=== PATIENT | female | born 1970 | race Caucasian/White ===

== ENCOUNTER 2017-06-15 21:17 | Observation (INO) ==
[2017-06-15] MEDS ORDERED: IOPAMIDOL 100 ML BOTTLE IV ONE (21:18)
[2017-06-15] MEDS ORDERED: ONDANSETRON 4 MG/2 ML VIAL IV ONE (21:42)
[2017-06-15] MEDS ORDERED: LACTATED RINGERS 1,000 ML IV ONE ×2 (21:42→23:44)
[2017-06-15] MEDS ORDERED: PROCHLORPERAZINE 10 MG/2 ML VIAL IV ONE (22:07)
[2017-06-15 23:24] LABS: Basophils # (Auto) 0.1 K/mcL (0.0-0.3); Basophils % (Auto) 0.6 % (0.0-2.0); Eosinophils # (Auto) 0 K/mcL (0.0-0.7); Eosinophils % (Auto) 0.3 % (0.0-7.0); Granulocytes % (Auto) 84.5 % (38.0-78.0); Lymphocytes # (Auto) 1.3 K/mcL (1.5-4.8); Lymphocytes % (Auto) 9.8 % (15.5-49.0); Mean Corpuscular HGB Conc 33.7 g/dL (31.0-36.0); Monocytes # (Auto) 0.6 K/mcL (0.1-0.9); Monocytes % (Auto) 4.8 % (1.0-12.0); Platelet Count 297 K/mcL (140-440); RBC 5.49 M/mcL (4.00-5.20); Red Cell Distribution Width 13.2 % (11.5-14.5)
[2017-06-15 23:37] LABS: Appearance,Urine CLEAR; Bacteria,Urine 0 /hpf (0); Bilirubin,Urine NEG (NEG); Color,Urine YELLOW; Glucose,Urine (UA) NEGATIVE (NEG); Leukocyte Esterase,Urine NEG /uL (NEG); Mucus,Urine FEW /hpf (0); Nitrate,Urine NEG (NEG); Protein,Urine 100 mg/dL (NEG); Specific Gravity,Urine 1.019 (1.000-1.035); Urine Blood 0.2 mg/dL (<0.03); Urine Hyaline Cast 70 /lpf (0-2); Urine RBC 2 /hpf (0-1); Urine Squamous Epithelial Cell < 1 /hpf (0-4); Urine WBC < 1 /hpf (0-4); Urobilinogen,Urine NEG (NEG)
[2017-06-15 23:41] LABS: ALT/SGPT 22 U/l (0-40); Albumin 5.2 gm/dL (3.2-5.2); Albumin/Globulin Ratio 1.4 (1.0-2.3); Alkaline Phosphatase 176 U/L (39-117); Blood Urea Nitrogen 14 mg/dl (6-20); C-Reactive Protein < 0.3 mg/dl (0.0-0.8)
[2017-06-15] MEDS ORDERED: LORazepam 2 MG/ML VIAL IV ONE (23:45)
[2017-06-16] MEDS ORDERED: ONDANSETRON 4 MG/2 ML VIAL IV ONE (00:42)
[2017-06-16] MEDS ORDERED: SCOPOLAMINE 1 PATCH PATCH TOPICAL ONE (01:47)
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
--- NOTE | 2017-06-16 02:23 | Internal Med History&Physical ---
Medical - H&P: HPI Patient information: Note initiated : 06/16/17 at 2:19 am Service Date, if different from initiated Date: [] Patient: Zarina Dubois a 47 y/o F admitted on for sinus congestion, nausea. Chief Complaint: n/v/abdominal pain History of present illness: Ms. Talon Noel is a 47 year old F with a history of asthma/COPD with continued tobacco abuse, diagnosis of cyclical vomiting syndrome and alcohol abuse with history of alcoholic ketoacidosis who was in her usual state of health until earlier this week when she developed rhinorrhea, sinus congestion. She began having nausea and nonbloody, nonbilious vomiting 2 days ago accompanied by suprapubic, upper abdominal and lower back pain following the vomiting. She denies fevers or chills, dysuria. She does endorse diarrhea for the last 3 days that seems to have slowed down. She denies hematochezia or melena. She reports that she has a history of alcohol abuse dating back to 2012. At her heaviest she drank a fifth of alcohol daily. She states she was sober for 76 days but relapsed last week and has been drinking about a third of the fifth daily with her last drink yesterday. In the ER she was treated with 2 L of lactated Ringer's, Zofran, Compazine and Ativan and her vomiting has slowed but she still has intractable nausea. She was found to have an anion gap of 41 and a lactate of 5.2. She had mild liver enzyme elevation and leukocytosis. She had ketones in her urine. She states she is postmenopausal and has no chance of being . She has a history of cyclical vomiting syndrome which was diagnosed in 2006. She actually had her gallbladder out in the hopes that would improve her symptoms, but did not. She states she normally does better with ranitidine. This last month that she has not really had any heartburn symptoms. Review of systems: Please see the HPI. Otherwise a comprehensive review of systems is negative or noncontributory to chief complaint. Medical - H&P: PMH Medical history: Asthma/possible COPD with continued tobacco abuse Alcohol is a history of alcoholic ketoacidosis. She denies any history of known liver disease Cyclical vomiting syndrome Surgical history: Cholecystectomy Pertinent family history: Positive for diabetes, stroke, cancer. One of her brothers had hepatitis C cirrhosis and of hepatocellular carcinoma. Another brother from complications from HIV. Social history: She lives with her sister, . She is currently looking for work and volunteers at the local [employer]. She smokes one pack per day and occasionally smokes marijuana. She has a history of alcohol abuse with relapse last week. She is a full code and designates her sister as her surrogate medical decision maker. Medical - H&P: Meds Home Medications Medication Instructions Recorded Confirmed Type Albuterol Sulfate [Proair Hfa] 8.5 gm IH PRN PRN 01/28/17 03/03/17 History Ranitidine HCl [Heartburn Relief] 150 mg PO DAILY 01/28/17 03/03/17 History Allergies Allergy/AdvReac Type Severity Reaction Status Date / Time sulfamethoxazole Allergy Vomiting Verified 06/15/17 21:21 [From Bactrim] blood trimethoprim [From Bactrim] Allergy Vomiting Verified 06/15/17 21:21 blood codeine AdvReac Abdominal Verified 06/15/17 21:21 Pain Medroxyprogesterone AdvReac Anxiety Verified 06/15/17 21:21 [From Depo-Provera] Medical - H&P: Exam - Constitutional Vitals: Temp Pulse Resp BP Pulse Ox 97.0 F 123 H 20 119/71 94 06/15/17 21:18 06/16/17 00:46 06/15/17 21:18 06/16/17 00:46 06/16/17 00:46 Exam: General: This is a pleasant, thin woman who appears fatigued and much older than her stated age. HEENT: Normocephalic atraumatic. PERRLA. EOMI. Sclerae are anicteric; conjunctiva are noninjected. Mucous membranes are dry. Neck: Supple without JVD, lymphadenopathy or thyromegaly Respiratory: No acute respiratory distress. Lungs are clear to auscultation bilaterally. CV: Regular rate and rhythm. No murmurs, rubs or gallops. Abdomen: Soft, nondistended. She has mild tenderness throughout her abdomen. Bowel tones are present. No peritoneal signs. No stigmata of chronic liver disease Extremities are without clubbing, cyanosis or edema. Neuro: Alert and oriented 3. Cranial nerves II through XII are grossly intact. She has no focal motor or sensory deficits. No asterixis. Psych: Normal mood and affect. Skin: Warm and dry Medical - H&P: Reslt - Labs CBC & Chem 7: 06/15/17 22:20 06/16/17 01:42 Labs: Short CBC 06/15/17 Range/Units 22:20 WBC 13.3 H (4.5-11.0) K/mcL Hgb 17.0 H (12.0-15.0) g/dL Hct 50.5 H (36.0-48.0) % Plt Count 297 (140-440) K/mcL BMP 06/15/17 22:20 Sodium 137 Potassium 4.0 Chloride 85 L Carbon Dioxide 11 L BUN 14 Creatinine 1.0 Glucose 93 Calcium 9.6 Liver Function 06/15/17 Range/Units 22:20 Total Bilirubin 0.5 (0.0-1.0) mg/dL AST 38 H (0-37) U/l ALT 22 (0-40) U/l Alkaline Phosphatase 176 H (39-117) U/L Albumin 5.2 (3.2-5.2) gm/dL Urine 06/15/17 Range/Units 22:20 Urine Color Yellow Urine Appearance Clear Urine pH 5.0 (5.0-9.0) Ur Specific [place] 1.019 (1.000-1.035) Urine Protein 100 A (NEG) mg/dL Urine Glucose (UA) Negative (NEG) mg/dL Medical - H&P: A/P - Narrative A/P Narrative: #Anion gap metabolic acidosis concurrent metabolic alkalosis -AG 41-->31 with 2L IVF -lactate 5.2 -urine ketones 80 #Intractable nausea and vomiting with h/o CVS This is likely multifactorial with the real underlying issue exacerbating her cyclical vomiting. She does not have a surgical abdomen on exam, but will get CT abd/pelvis to evaluate for intraabdominal catastrophe causing lactic acidosis. Since she is so clinically stable it may be that she was hypovolemic and couldn't clear her lactic acid 2/2 underlying EtOH liver disease. Also consider alcoholic ketoacidosis vs starvation ketosis. Plan: 1. Check ABG for pH. Tele 2. Cont IVF 3. F/U lytes, including Mg and Phos at 9AM. Trend lactate. 4. PRN antiemetics and IV famotidine as H2 blockers have helped in the past 5. CT abd/pelvis as above 6. Monitor for EtOH WD #SIRS--as above #Abnormal LFTs--likely r/t EtOH. Check INR, CK, hepatitis panel. f/u CT. #Upper respiratory tract infection--supportive care with PRN nebs #Nicotine dependence: nicotine patch QD. I counseled patient on smoking cessation x 3 minutes personalizing it to her lung disease and family history of stroke. #DVT prophylaxis: enoxaparin #CODE STATUS: Full. Her sister, , is her surrogate MDM.
[2017-06-16 02:25] LABS: Blood Urea Nitrogen 11 mg/dl (6-20); Creatine Kinase 214 IU/L (24-170)
[2017-06-16] MEDS ORDERED: ONDANSETRON 4 MG/2 ML VIAL IV PRN (02:55)
[2017-06-16] MEDS ORDERED: PROCHLORPERAZINE 10 MG/2 ML VIAL IV PRN (02:55)
[2017-06-16] MEDS ORDERED: PROCHLORPERAZINE MALEATE 10 MG TABLET PO PRN (02:55)
[2017-06-16] MEDS ORDERED: HYDROmorphone 2 MG/ML SYRINGE IV PRN (02:55)
[2017-06-16] MEDS ORDERED: ALBUTEROL SULFATE 2.5 MG/3 ML NEBULIZER NEB PRN (02:55)
[2017-06-16] MEDS ORDERED: PROMETHAZINE 25 MG/ML VIAL IV PRN (02:55)
[2017-06-16] MEDS ORDERED: NICOTINE 14 MG PATCH ONE (03:12)
[2017-06-16] MEDS ORDERED: PROMETHAZINE 25 MG/ML VIAL ONE (03:33)
[2017-06-16] MEDS: LACTATED RINGERS 1,000 ML IV SCH ×3 (03:34→18:46)
--- NOTE | 2017-06-16 06:08 | XRay Report ---
INDICATION: Cough. Elevated lactic acid TECHNIQUE: PA and lateral upright chest x-ray COMPARISON: Previous chest x-ray dated 03/03/2017 FINDINGS:Upper lungs are lucent suggesting COPD. No focal pulmonary parenchymal infiltrate or mass. Heart size and vascularity are normal. No pulmonary edema. No pulmonary congestion. [place] and mediastinum are negative. No pleural fluid. No significant interval change IMPRESSION: 1. Probable COPD 2. No acute or focal abnormality. Interpreted and Authenticated by: Adrian Craig 06/16/17
--- NOTE | 2017-06-16 06:17 | Cat Scan Report ---
CLINICAL INFORMATION: Altered mental status. Elevated lactic acid. Vomiting. COMPARISON: None. TECHNIQUE: Axial images were obtained through the abdomen and pelvis. Sagittally and coronally reformatted images. 80 mL contrast material injected intravenously. Oral contrast material was not administered FINDINGS: Lung bases are negative for focal infiltrate. No parenchymal mass. There is centrilobular emphysema both lung bases. Appearance suggests smoking history. Clinical correlation necessary. No pleural fluid. No pericardial fluid. Liver is enlarged and diffusely low in attenuation. Appearance is consistent with hepatic steatosis. There is a single low-density lesion in the left lobe. This measures 14 mm. This is probably benign. Liver contour is smooth. No ascites. There are surgical clips in the gallbladder fossa. No dilated bile ducts. Spleen is negative. No splenomegaly. Normal enhancement of splenic and portal veins. There is an 11 mm low-density lesion in the pancreas, the junction of the body and tail. This is nonspecific. There is no distal pancreatic duct dilatation. This may be a benign cystic lesion but neoplasm is not excluded. Baseline MRI scan recommended for further evaluation. Pancreas is otherwise negative. No peripancreatic abnormality. Negative adrenal glands. Negative kidneys. No solid or cystic mass. No hydronephrosis. Colon appears diffusely abnormal with mild generalized colonic wall thickening. No pericolonic inflammatory change. No diverticulitis. No discrete mass. The entire colon is abnormal suggesting pancolitis. Normal superior and inferior mesenteric artery. Findings are not typical of ischemic colitis. Small bowel is negative. No dilatation. No bowel obstruction. No retroperitoneal or significant mesenteric adenopathy. No free intraperitoneal fluid. No abscess. No pneumoperitoneum. No biliary or portal venous gas. No pneumatosis. Uterus is present. No adnexal mass. Lumbar spine, sacrum, pelvis are negative. Examination was initially interpreted by [facility] IMPRESSION: 1. Mild generalized colonic wall thickening suggests pancolitis. 2. 11 mm low-density lesion in the pancreas. Recommend baseline MRI scan 3. Hepatic steatosis. 4. Centrilobular emphysema Interpreted and Authenticated by: Adrian Craig 06/16/17
[2017-06-16] MEDS: NICOTINE 14 MG PATCH TOPICAL SCH (09:32)
[2017-06-16] MEDS: FAMOTIDINE/PF 20 MG/2 ML VIAL IV SCH ×2 (09:33→21:16)
[2017-06-16] MEDS: ENOXAPARIN 40 MG/0.4 ML SYRINGE SQ SCH (09:33)
[2017-06-16 09:52] LABS: Blood Urea Nitrogen 9 mg/dl (6-20); Magnesium 1.9 mg/dL (1.6-2.5)
[2017-06-16] MEDS ORDERED: MAGNESIUM SULFATE 32.48 MEQ in DEXTROSE 5% IN WATER 100 ML IV ONE (10:02)
--- NOTE | 2017-06-16 10:29 | Internal Med Progress Note ---
Medical - Auxillary Note - Subjective Patient Information: Note initiated : 06/16/17 at 10:20 am Service Date, if different from initiated Date: [] Patient: Zarina Dubois 47 y/o F admitted on 06/16/17 for sinus congestion, nausea. Chief Complaint: [] Vital Signs Temp Pulse Resp BP Pulse Ox 99.4 F H 113 H 20 112/66 94 06/16/17 08:49 06/16/17 08:49 06/16/17 02:56 06/16/17 08:49 06/16/17 08:49 Period Temp Pulse Resp BP Sys/Quan Pulse Ox Last 24 Hr 97.0 F-99.4 F 95-140 16-20 112-134/66-89 94-97 Intake and Output 06/15/17 06/16/17 06/16/17 21:59 05:59 13:59 Intake Total 1999 / 1999 897 / 897 Output Total 650 / 650 Balance 1350 / 1350 897 / 897 Weight 120 lb 109 lb 8 oz Medications Albuterol Sulfate (Ventolin) 2.5 mg NEB Q4HP PRN PRN Reason: Wheezing Enoxaparin Sodium (Lovenox) 40 mg SQ DAILY [facility] Last Admin: 06/16/17 09:33 Dose: 40 mg Famotidine (Pepcid) 20 mg IV Q12 [facility] Last Admin: 06/16/17 09:33 Dose: 20 mg Hydromorphone HCl (Dilaudid) 0.5 mg IV Q2HP PRN PRN Reason: PAIN LEVEL > 6 Lactated Ringer's (Lactated Ringers) 1,000 mls @ 150 mls/hr IV .Q6H40M [facility] Last Admin: 06/16/17 09:33 Dose: 150 mls/hr Magnesium Sulfate 32.48 meq/ (Dextrose) 108 mls @ 54 mls/hr IV ONCE ONE Stop: 06/16/17 12:01 Nicotine (Nicoderm) 14 mg TOPICAL DAILY@1000 [facility] Last Admin: 06/16/17 09:32 Dose: 14 mg Ondansetron HCl (Zofran) 4 mg IV Q4HP PRN PRN Reason: Nausea And Vomiting Potassium/Phosphorus/Sodium (Neutra Phos) 1 packet PO BID [facility] Prochlorperazine Edisylate (Compazine) 10 mg IV Q4HP PRN PRN Reason: Nausea And Vomiting Prochlorperazine Maleate (Compazine) 10 mg PO Q8HP PRN PRN Reason: Nausea And Vomiting Promethazine HCl (Phenergan) 12.5 mg IV Q4HP PRN PRN Reason: Nausea And Vomiting Result Di[place]ams 06/15/17 22:20 06/16/17 08:54 Abnormal Labs 06/16/17 06/16/17 06/16/17 22:25 08:54 02:30 WBC RBC Hgb Hct Gran % Lymph % (Auto) Gran # Lymph # (Auto) PT 15.0 H INR 1.2 H VBG Lactic Acid Chloride 95 L Carbon Dioxide 12 L Anion Gap 26.0 H Calcium Phosphorus 2.4 L AST Alkaline Phosphatase Total Creatine Kinase Total Protein Globulin Urine Protein Urine Ketones Urine Occult Blood Urine RBC Hyaline Casts Ethyl Alcohol 0.134 H 06/16/17 06/16/17 06/15/17 01:42 00:20 22:20 WBC RBC Hgb Hct Gran % Lymph % (Auto) Gran # Lymph # (Auto) PT INR VBG Lactic Acid 5.2 H* Chloride 95 L 85 L Carbon Dioxide 9 L* 11 L Anion Gap 31.0 H 41.0 H Calcium 8.1 L Phosphorus AST 38 H Alkaline Phosphatase 176 H Total Creatine Kinase 214 H Total Protein 9.0 H Globulin 3.8 H Urine Protein Urine Ketones Urine Occult Blood Urine RBC Hyaline Casts Ethyl Alcohol 06/15/17 06/15/17 22:20 22:20 WBC 13.3 H RBC 5.49 H Hgb 17.0 H Hct 50.5 H Gran % 84.5 H Lymph % (Auto) 9.8 L Gran # 11.2 H Lymph # (Auto) 1.3 L PT INR VBG Lactic Acid Chloride Carbon Dioxide Anion Gap Calcium Phosphorus AST Alkaline Phosphatase Total Creatine Kinase Total Protein Globulin Urine Protein 100 A Urine Ketones 80 A Urine Occult Blood 0.2 A Urine RBC 2 H Hyaline Casts 70 H Ethyl Alcohol Pt is much improved this AM. Still having some lower abdominal pain but tolerating clears so far. Acidosis and anion gap continue to improve with IVF. Lactic acidosis has resolved. Her K is creeping up but I want to use LR as long as possible to avoid worsening her acidosis. Given Mg and Phos replacement today with repeat BMP ordered at 1500 and AM Mg and Phos. #AGMA 2/2 lactic acidosis, EtOH and ketosis (starvation vs EtOH) -lactate now 1. EtOH 0.134 on admission. Salicylates and CK reassuring -CT without perforation or ischemia # Hepatic steatosis--Trend LFTs in AM. F/U hepatitis panel. INR 1.2 # Possible pancreatic lesion--needs MRI. She does not have a PCP. This could be done as an outpatient if follow up arranged. She is checking on her insurance status today. #Pancolitis seen on CT--eventually will need diagnostic scope. She is hesitant to pursue colonsocopy but will consider. At this point, would hold off for at least a few days given hypovolemia and acidosis before subjecting her to colonoscopy prep. Again, I am concerned she may be lost to follow up if not arranged prior to DC. #EtOH abuse--monitor for sx of WD.
[2017-06-16 15:56] LABS: Blood Urea Nitrogen 10 mg/dl (6-20)
[2017-06-16 20:57] LABS: Blood Urea Nitrogen 11 mg/dl (6-20)
[2017-06-16] MEDS: NEUTRA PHOS 1 PACKET PO SCH (21:16)
[2017-06-17] MEDS: LACTATED RINGERS 1,000 ML IV SCH ×2 (01:16→08:45)
[2017-06-17 04:58] LABS: Mean Cell Volume 90.5 fL (80.0-100.0); Mean Corpuscular HGB Conc 34.7 g/dL (31.0-36.0); Mean Corpuscular Hemoglobin 31.4 pg (26.0-34.0); Platelet Count 181 K/mcL (140-440); RBC 4.14 M/mcL (4.00-5.20); Red Cell Distribution Width 13.1 % (11.5-14.5)
[2017-06-17 05:11] LABS: ALT/SGPT 14 U/l (0-40); Albumin 3.5 gm/dL (3.2-5.2); Albumin/Globulin Ratio 1.4 (1.0-2.3); Alkaline Phosphatase 105 U/L (39-117); Blood Urea Nitrogen 8 mg/dl (6-20)
[2017-06-17 06:09] LABS: Band Neutrophils % 3 % (0-10); Basophils % (Manual) 1 % (0-2); Eosinophils % (Manual) 1 % (0-7); Lymphocytes % 20 % (15-49); Monocytes % (Manual) 4 % (1-12); Platelet Estimate NORMAL (NORMAL); RBC Morphology NORMAL (NORMAL); Segmented Neutrophils % 71 % (38-78)
[2017-06-17] MEDS: ENOXAPARIN 40 MG/0.4 ML SYRINGE SQ SCH (08:52)
[2017-06-17] MEDS: FAMOTIDINE/PF 20 MG/2 ML VIAL IV SCH (08:52)
[2017-06-17] MEDS: NEUTRA PHOS 1 PACKET PO SCH ×2 (08:52→21:08)
[2017-06-17] MEDS ORDERED: POTASSIUM PHOSPHATE 40 MEQ in DEXTROSE 5% IN WATER 500 ML IV ONE (09:00)
[2017-06-17] MEDS: NICOTINE 14 MG PATCH TOPICAL SCH (10:55)
[2017-06-17 16:45] LABS: Blood Urea Nitrogen 7 mg/dl (6-20)
[2017-06-17] MEDS ORDERED: POTASSIUM PHOSPHATE 20 MEQ in DEXTROSE 5% IN WATER 250 ML IV ONE (17:03)
[2017-06-17] MEDS ORDERED: POTASSIUM PHOSPHATE 22 MEQ/5 ML VIAL IV ONE (19:16)
[2017-06-17] MEDS: FAMOTIDINE 20 MG TABLET PO SCH (21:08)
--- NOTE | 2017-06-17 21:36 | Internal Med Progress Note ---
Medical - PN: Subj Patient information: Note initiated : 06/17/17 at 9:32 pm Service Date, if different from initiated Date: [] Patient: Zarina Dubois 47 y/o F admitted on 06/16/17 for sinus congestion, nausea. Chief Complaint: f/u acidosis Interval history: June 17: Feels better this morning. His advanced from clears to full to regular diet by late morning. Stools have firmed up. No abdominal pain. No nausea and vomiting. Discussed obtaining an MRI to further characterize pancreatic lesion. This lesion was found on CT at the time of hospitalization yesterday. Would prefer to fully evaluate this finding prior to discharge. She requires further IV phosphorus repletion and will require further hospitalization for that therapy as well. - Constitutional Vitals: Vital Signs Temp Pulse Resp BP Pulse Ox 98.6 F 90 16 130/78 96 06/17/17 19:51 06/17/17 12:32 06/17/17 19:51 06/17/17 19:51 06/17/17 19:51 Period Temp Pulse Resp BP Sys/Quan Pulse Ox Last 24 Hr 98.4 F-99.4 F 85-96 14-18 101-130/67-89 93-97 Intake and Output 06/17/17 06/17/17 06/17/17 05:59 13:59 21:59 Intake Total 1275 / 1275 1208 / 0365 593.3453 / 881.0909 Output Total 500 / 500 1250 / 1250 650 / 650 Balance 775 / 775 -42 / -42 231.0909 / 231.0909 Intake & Output: Intake & Output 06/17/17 06/17/17 06/17/17 05:59 13:59 21:59 Intake Total 1275 / 1275 1208 / 8360 952.4614 / 881.0909 Output Total 500 / 500 1250 / 1250 650 / 650 Balance 775 / 775 -42 / -42 231.0909 / 231.0909 Intake: IV 975 / 975 1108 / 5525 585.1313 / 401.0909 Lactated Ringers 1,000 ml @ 150 975 / 975 1000 / 1000 mls/hr IV .[id number] [facility] Rx#: [id number] Potassium Phosphate 40 Meq In 108 / 108 Dextrose 5% in Water 500 ml @ 127.273 mls/hr IV ONCE ONE Rx#: [id number] Oral 300 / 300 240 / 240 GI Tube Flush 100 / 100 240 / 240 Output: Void Amount 500 / 500 1250 / 1250 650 / 650 Other: Meal jello & popsicle Breakfast Dinner Percent of Meal Consumed 100% 100% Feeding Ability Independent Independent # Voids 1 2 # Bowel Movements 1 Exam: General: In NAD Chest: CTA CV: RRR, no edema Abd: Soft, NT, no g/r Neuro: A and Ox3, IBARRA equally. Medical - PN: Obj Da - Labs CBC & Chem 7: 06/17/17 03:44 06/17/17 15:56 Labs: Abnormal Lab Results 06/17/17 06/17/17 06/17/17 15:56 03:45 03:44 WBC 13.0 H RBC Hgb Hct Gran % Lymph % (Auto) Gran # Lymph # (Auto) PT INR VBG Lactic Acid Potassium Chloride Carbon Dioxide Anion Gap Creatinine 0.5 L Glucose 121 H Calcium Phosphorus 2.1 L 0.9 L Total Bilirubin 1.2 H AST Alkaline Phosphatase Total Creatine Kinase Total Protein Globulin Urine Protein Urine Ketones Urine Occult Blood Urine RBC Hyaline Casts Ethyl Alcohol 06/16/17 06/16/17 06/16/17 22:25 20:00 15:00 WBC RBC Hgb Hct Gran % Lymph % (Auto) Gran # Lymph # (Auto) PT INR VBG Lactic Acid Potassium 3.2 L Chloride 94 L Carbon Dioxide 18 L Anion Gap 22.0 H Creatinine Glucose 179 H 123 H Calcium Phosphorus Total Bilirubin AST Alkaline Phosphatase Total Creatine Kinase Total Protein Globulin Urine Protein Urine Ketones Urine Occult Blood Urine RBC Hyaline Casts Ethyl Alcohol 0.134 H 06/16/17 06/16/17 06/16/17 08:54 02:30 01:42 WBC RBC Hgb Hct Gran % Lymph % (Auto) Gran # Lymph # (Auto) PT 15.0 H INR 1.2 H VBG Lactic Acid Potassium Chloride 95 L 95 L Carbon Dioxide 12 L 9 L* Anion Gap 26.0 H 31.0 H Creatinine Glucose Calcium 8.1 L Phosphorus 2.4 L Total Bilirubin AST Alkaline Phosphatase Total Creatine Kinase 214 H Total Protein Globulin Urine Protein Urine Ketones Urine Occult Blood Urine RBC Hyaline Casts Ethyl Alcohol 06/16/17 06/15/17 06/15/17 00:20 22:20 22:20 WBC 13.3 H RBC 5.49 H Hgb 17.0 H Hct 50.5 H Gran % 84.5 H Lymph % (Auto) 9.8 L Gran # 11.2 H Lymph # (Auto) 1.3 L PT INR VBG Lactic Acid 5.2 H* Potassium Chloride 85 L Carbon Dioxide 11 L Anion Gap 41.0 H Creatinine Glucose Calcium Phosphorus Total Bilirubin AST 38 H Alkaline Phosphatase 176 H Total Creatine Kinase Total Protein 9.0 H Globulin 3.8 H Urine Protein Urine Ketones Urine Occult Blood Urine RBC Hyaline Casts Ethyl Alcohol 06/15/17 22:20 WBC RBC Hgb Hct Gran % Lymph % (Auto) Gran # Lymph # (Auto) PT INR VBG Lactic Acid Potassium Chloride Carbon Dioxide Anion Gap Creatinine Glucose Calcium Phosphorus Total Bilirubin AST Alkaline Phosphatase Total Creatine Kinase Total Protein Globulin Urine Protein 100 A Urine Ketones 80 A Urine Occult Blood 0.2 A Urine RBC 2 H Hyaline Casts 70 H Ethyl Alcohol Meds: Medications Albuterol Sulfate (Ventolin) 2.5 mg NEB Q4HP PRN PRN Reason: Wheezing Enoxaparin Sodium (Lovenox) 40 mg SQ DAILY [facility] Last Admin: 06/17/17 08:52 Dose: 40 mg Famotidine (Pepcid) 20 mg PO BID [facility] Last Admin: 06/17/17 21:08 Dose: 20 mg Hydromorphone HCl (Dilaudid) 0.5 mg IV Q2HP PRN PRN Reason: PAIN LEVEL > 6 Nicotine (Nicoderm) 14 mg TOPICAL DAILY@1000 [facility] Last Admin: 06/17/17 10:55 Dose: 14 mg Ondansetron HCl (Zofran) 4 mg IV Q4HP PRN PRN Reason: Nausea And Vomiting Potassium/Phosphorus/Sodium (Neutra Phos) 1 packet PO BID [facility] Last Admin: 06/17/17 21:08 Dose: 1 packet Prochlorperazine Edisylate (Compazine) 10 mg IV Q4HP PRN PRN Reason: Nausea And Vomiting Prochlorperazine Maleate (Compazine) 10 mg PO Q8HP PRN PRN Reason: Nausea And Vomiting Promethazine HCl (Phenergan) 12.5 mg IV Q4HP PRN PRN Reason: Nausea And Vomiting Medical - PN: A/P - Narrative A/P Narrative: 47 y/o with a history of EtOH abuse, presents witn n/v/diarrhea, found to have significant AG metabolic acidosis #AGMA 2/2 lactic acidosis, EtOH and ketosis (starvation vs EtOH); resolved. -suspect secondary to alcoholic ketoacidosis and associated lactic acidosis -CT without perforation or ischemia -discussed with patient RE: continue to try to remain abstinent after this episode -still with hypophosphatemia, in spite of IV and PO intake, will need to keep in house to replete # Hepatic steatosis--Trend LFTs in AM. F/U hepatitis panel, still pending. # Possible pancreatic lesion--agrees to MRI in AM. She is filling out the paperwork for a a PCP to provide follow-up. # Pancolitis seen on CT--eventually will need diagnostic scope. She is hesitant to pursue colonsocopy but will consider. She plans to get referral from new PCP. # EtOH abuse--continue to monitor for sx of WD.
[2017-06-18 05:47] LABS: Mean Cell Volume 91.6 fL (80.0-100.0); Mean Corpuscular HGB Conc 34.2 g/dL (31.0-36.0); Mean Corpuscular Hemoglobin 31.4 pg (26.0-34.0); Platelet Count 168 K/mcL (140-440); RBC 4.47 M/mcL (4.00-5.20); Red Cell Distribution Width 13.2 % (11.5-14.5)
[2017-06-18 06:01] LABS: ALT/SGPT 19 U/l (0-40); Albumin 3.6 gm/dL (3.2-5.2); Albumin/Globulin Ratio 1.3 (1.0-2.3); Alkaline Phosphatase 104 U/L (39-117); Blood Urea Nitrogen 6 mg/dl (6-20); Magnesium 1.8 mg/dL (1.6-2.5)
[2017-06-18 06:17] LABS: Band Neutrophils % 1 % (0-10); Eosinophils % (Manual) 1 % (0-7); Lymphocytes % 31 % (15-49); Monocytes % (Manual) 5 % (1-12); Platelet Estimate NORMAL (NORMAL); RBC Morphology NORMAL (NORMAL); Segmented Neutrophils % 54 % (38-78)
--- NOTE | 2017-06-18 09:02 | Discharge Summary ---
Medical - DS: Prov Patient information: Note initiated : 06/18/17 at 8:59 am Service Date, if different from initiated Date: [] Patient: Zarina Dubois 47 y/o F admitted on 06/16/17 for sinus congestion, nausea, found to have anion gap acidosis. Date of admission: 06/16/17 02:50 Discharge date: 06/18/17 Primary care physician: PCP-Establishing with PCP at time of discharge Admitting clinician: Zenia Oliva Consults: 06/16/17 01:30 Consult to Physician [CONS] Stat Comment: Consulting Provider: Zenia Oliva Reason For Exam: Physician to Consult Discharging clinician: Mily Durán Medical - DS: Meds - Discharge Medications Active and Home Medications: Home Medications Albuterol Sulfate [Proair Hfa] 8.5 gm IH PRN PRN 01/28/17 [History Confirmed 12/13 Last Taken Unknown] Ranitidine HCl [Heartburn Relief] 150 mg PO DAILY 01/28/17 [History Confirmed Last Taken Unknown] Medical - DS: Hosp Hospital course: The patient is a 47-year-old female with history of alcohol abuse, had been abstinent, had resumed drinking earlier in the week prior to presentation. She presented to the emergency room with nausea and vomiting. She is found to have a significant anion gap metabolic acidosis, anion gap of 41. Lactate was elevated at 5.2. BAL was 0.134 at admission. She was admitted, treated with aggressive hydration. It was suspected her anion gap acidosis was secondary to alcoholic ketoacidosis. She had ketones present in her urine. Lactate normalized within the first few hours with hydration, may have been secondary to the ketoacidosis. No other cause of the acidosis was found. CT of the abdomen showed no evidence of perforation or abscess. Salicylate was negative. She continued to improve with fluids, requiring significant amount of electrolyte replacement, particularly potassium and phosphorus. Eventually she was able to advance her diet to regular diet which she tolerated well. She continued to require IV electrolyte replacement, spending one further night in the hospital. As part of her evaluation, she had CT of the abdomen. This did show mild generalized colonic wall thickening, suggesting pancolitis. It was not suspected to be due to ischemic colitis. Patient was hesitant to pursue colonoscopy during her hospitalization, and indeed she was profoundly dehydrated and it would likely be better to hold off on a bowel prep for a short period of time. In addition there was a 11 mm low density lesion in the pancreas. MRI was recommended for follow-up. That could not be obtained during this hospitalization due to equipment being out of service. She also had notable hepatic steatosis, presumably secondary to alcohol abuse. COPD changes were also noted in the lungs. On the morning of discharge, the patient was no longer requiring IV hydration, she is tolerating a regular diet, electrolytes have been repleted. We discussed follow-up from this hospitalization. She is establishing with primary care physician. She will pursue outpatient imaging and GI referral. The patient was counseled on further abstinence from alcohol given her presentation, prior history of alcoholic ketoacidosis and steatohepatitis seen on imaging. There is no evidence of withdrawal during her hospitalization. Discharge diagnosis: Metabolic acidosis, suspected alcoholic ketoacidosis Secondary discharge diagnosis: Alcohol abuse Mild pancolitis Hepatic steatosis Tobacco abuse Time spent discussing smoking cessation with patient: 3 to 10 minutes Medical - DS: Exam - Constitutional Vitals: Vital Signs Temp Pulse Pulse Resp BP BP Pulse Ox 06/18/17 07:37 98.9 F 95 H 16 121/91 96 06/18/17 04:07 98.2 F 16 116/83 97 06/18/17 00:00 98.8 F 16 120/89 97 06/17/17 19:51 98.6 F 16 130/78 96 06/17/17 16:44 99.4 F H 18 129/89 97 06/17/17 12:33 98.9 F 16 113/87 96 06/17/17 12:32 98.4 F 90 16 113/78 96 06/17/17 10:35 90 112/81 95 06/17/17 10:33 99.4 F H 96 H 16 112/81 96 Intake and Output 06/17/17 06/18/17 06/18/17 21:59 05:59 13:59 Intake Total 881.0909 / 881.0909 350 / 350 Output Total 650 / 650 Balance 231.0909 / 231.0909 350 / 350 Intake: IV 401.0909 / 401.0909 Oral 240 / 240 350 / 350 GI Tube Flush 240 / 240 Output: Void Amount 650 / 650 Other: Meal Dinner Percent of Meal Consumed 100% Feeding Ability Independent # Voids 2 2 # Bowel Movements 0 Weight 112 lb Additional comments: General: Sitting up in bed in no acute distress Chest: Clear to auscultation, no wheezes Cardiovascular: Regular rate and rhythm, no DM Abdomen: Soft, very mild left upper tenderness with no guarding or rebound, normoactive bowel sounds Neuro: Alert, oriented 3, nonfocal. Medical - DS: Data Labs on day of discharge: Labs from last 24 hours 06/18/17 06/18/17 06/17/17 03:35 03:35 15:56 WBC 9.6 RBC 4.47 Hgb 14.0 Hct 41.0 MCV 91.6 MCH 31.4 MCHC 34.2 RDW 13.2 Plt Count 168 MPV 9.3 Total Counted 100 Seg Neutrophils % 54 Band Neutrophils % 1 Lymphocytes % 31 Monocytes % (Manual) 5 Eosinophils % (Manual) 1 Reactive Lymphocytes 8 H Platelet Estimate Normal RBC Morphology Normal Sodium 145 Potassium 3.5 Chloride 102 Carbon Dioxide 29 Anion Gap 14.0 BUN 6 Creatinine 0.5 L GFR Calculation 115 Glucose 110 H Calcium 9.2 Phosphorus 3.8 2.1 L Magnesium 1.8 Total Bilirubin 0.7 AST 32 ALT 19 Alkaline Phosphatase 104 Total Protein 6.3 Albumin 3.6 Globulin 2.7 Albumin/Globulin Ratio 1.3 06/17/17 15:56 WBC RBC Hgb Hct MCV MCH MCHC RDW Plt Count MPV Total Counted Seg Neutrophils % Band Neutrophils % Lymphocytes % Monocytes % (Manual) Eosinophils % (Manual) Reactive Lymphocytes Platelet Estimate RBC Morphology Sodium 140 Potassium 3.4 Chloride 100 Carbon Dioxide 30 Anion Gap 10.0 BUN 7 Creatinine 0.6 GFR Calculation 109 Glucose 100 Calcium 9.1 Phosphorus Magnesium Total Bilirubin AST ALT Alkaline Phosphatase Total Protein Albumin Globulin Albumin/Globulin Ratio - Imaging and Cardiology CT scan - abdomen Additional comments: IMPRESSION: 1. Mild generalized colonic wall thickening suggests pancolitis. 2. 11 mm low-density lesion in the pancreas. Recommend baseline MRI scan 3. Hepatic steatosis. 4. Centrilobular emphysema Medical - DS: A/P - Patient/Caregiver Discharge Instructions Activity: increase activity as tolerated Diet: Regular Diet Additional Instructions: Establish, and follow up with a primary care physician. When established, you will need MRI of the abdomen to evaluate your pancreas and referral to GI. - Problem Maintenance (1) Metabolic acidosis with increased anion gap and accumulation of organic acids Status: Resolved - Follow up Plan Follow up with: No,PCP [Primary Care Provider] - Disposition: Home, Self-Care Prognosis: Good Rehab Potential: Good Overall status at discharge: patient is back to baseline
[2017-06-18] MEDS: FAMOTIDINE 20 MG TABLET PO SCH (09:07)
[2017-06-18] MEDS: ENOXAPARIN 40 MG/0.4 ML SYRINGE SQ SCH (09:07)
[2017-06-18] MEDS: NEUTRA PHOS 1 PACKET PO SCH (09:07)
[2017-06-18] MEDS: NICOTINE 14 MG PATCH TOPICAL SCH (09:14)
[2017-06-18] MEDS ORDERED: 0.9 % SODIUM CHLORIDE 10 ML SYRINGE IV SCH (14:00)
[2017-06-20 09:38] LABS: Hepatitis A Antibody Total NON-REACTIVE (NON-REACTIVE); Hepatitis B SAB Quant <5 mIU/mL (> OR = 10); Hepatitis B Surface Antigen NON-REACTIVE (NON-REACTIVE); Hepatitis C Virus Antibody NON-REACTIVE (NON-REACTIVE)
== END 2017-06-18 10:20 | disposition home or self-care (01) ==
LOC: ICU 21:17 → ED 21:17 → ICU 06-16 02:50
PROVIDERS: ADMIT Internal Medicine; ATTEND Internal Medicine